=== PATIENT | male | born 1965 | race Two or more races ===

== ENCOUNTER 2021-08-17 19:48 | Inpatient (IN) | payer OTHER ==
[~2021-08-17] VITALS: Ht 172.7 cm; Wt 87.7 kg
[2021-08-17] MEDS ORDERED: IOHEXOL 350 MG/ML 100ML IJ ONE (21:05)
[2021-08-17 21:09] LABS: Urine Bacteria FEW /hpf (None Seen); Urine Blood Negative /uL (Negative); Urine Hyaline Cast FEW /lpf (0 - 2); Urine Mucus FEW (None Seen); Urine Specific Gravity 1.028 (1.001-1.035); Urine WBC 2 /hpf (0 - 3)
[2021-08-17 21:29] LABS: Basophils # (auto) 0.2 10 ^3/uL (0-0.2); Eosinophils # (auto) 0.1 10 ^3/uL (0-0.8); Eosinophils % (auto) 0.9 % (0.0-7.0); Hematocrit 34.7 % (41.0-53.0); Hemoglobin 11.7 g/dL (13.5-17.5); Lymphocytes # (auto) 3.5 10 ^3/uL (0.4-5.4); Lymphocytes % (auto) 21.1 % (10.0-50.0); Mean Corpuscular Hemoglobin 31.1 pg (28.0-32.0); Mean Corpuscular Hgb Conc. 33.5 g/dL (32.0-36.0); Mean Corpuscular Volume 92.7 fL (80.0-100.0); Monocytes # (auto) 0.8 10 ^3/uL (0-1.3); Monocytes % (auto) 4.8 % (0.0-12.0); Neutrophils # (auto) 11.9 10 ^3/uL (1.6-8.6); Neutrophils % (auto) 72.2 % (37.0-80.0); Nucleated Red Blood Cells % 0.1 %; Red Blood Cells 3.75 10^6/uL (4.5-5.90); White Blood Cell 16.4 10^3/uL (4.4-10.8)
[2021-08-17 21:42] LABS: Albumin 3.6 g/dL (3.4-5.0); Calcium 8.8 mg/dL (8.5-10.1); Magnesium 2.2 mg/dL (1.6-2.6); Potassium 3.4 mmol/L (3.5-5.1)
[2021-08-17 21:44] LABS: BUN/Creatinine Ratio 27.1
[2021-08-17 21:47] LABS: Bilirubin, Total 0.3 mg/dL (0.2-1.0); Total Protein 6.8 g/dL (6.4-8.2)
[2021-08-17] MEDS ORDERED: PANTOPRAZOLE 40mg/50ML NS AE 50 ML IV ONE (22:00)
[2021-08-17] MEDS ORDERED: PANTOPRAZOLE 80 MG in SODIUM CHL 0.9% 100 ML IV ONE (22:00)
[2021-08-17] MEDS ORDERED: ONDANSETRON HCL 4 MG/2 ML VIAL IV PRN (22:45)
[2021-08-17] MEDS ORDERED: MORPHINE SULFATE INJ 2 MG/ml SYRG IV PRN (22:45)
[2021-08-17] MEDS ORDERED: NITROGLYCERIN 0.4 MG SL TAB SL PRN (22:45)
[2021-08-17 22:58] LABS: INR 0.97 (0.9-1.15)
[2021-08-18] MEDS: SODIUM CHLORIDE 0.9% 1,000 ML IV SCH ×4 (00:20→13:30)
[2021-08-18] MEDS: PANTOPRAZOLE 40mg/50ML NS AE 50 ML IV SCH ×6 (00:21→23:58)
[2021-08-18] MEDS ORDERED: PANTOPRAZOLE 40 MG/10 ML VIAL INJ IV ONE (01:31)
[2021-08-18 02:58] VITALS: BP 114/69
[2021-08-18 05:00] VITALS: BP 114/69
[2021-08-18 07:16] LABS: Basophils # (auto) 0.1 10 ^3/uL (0-0.2); Basophils % (auto) 0.9 % (0.0-2.0); Eosinophils # (auto) 0.1 10 ^3/uL (0-0.8); Eosinophils % (auto) 0.7 % (0.0-7.0); Hematocrit 28.2 % (41.0-53.0); Hemoglobin 9.7 g/dL (13.5-17.5); Lymphocytes # (auto) 2.4 10 ^3/uL (0.4-5.4); Mean Corpuscular Hemoglobin 31.2 pg (28.0-32.0); Mean Corpuscular Hgb Conc. 34.3 g/dL (32.0-36.0); Mean Corpuscular Volume 91.2 fL (80.0-100.0); Monocytes # (auto) 0.4 10 ^3/uL (0-1.3); Monocytes % (auto) 4.3 % (0.0-12.0); Neutrophils # (auto) 6.6 10 ^3/uL (1.6-8.6); Neutrophils % (auto) 69.1 % (37.0-80.0); Red Blood Cells 3.09 10^6/uL (4.5-5.90); White Blood Cell 9.5 10^3/uL (4.4-10.8)
[2021-08-18 07:31] LABS: Albumin 3.1 g/dL (3.4-5.0); Calcium 8.1 mg/dL (8.5-10.1)
[2021-08-18 07:34] LABS: BUN/Creatinine Ratio 29.1
[2021-08-18 07:37] LABS: Bilirubin, Total 0.3 mg/dL (0.2-1.0); Total Protein 5.5 g/dL (6.4-8.2)
[2021-08-18 09:00] VITALS: BP 101/59
[2021-08-18 13:00] VITALS: BP 98/51
[2021-08-18 17:00] VITALS: BP 94/52
[2021-08-18] MEDS: SUCRALFATE 1 GM TAB PO SCH ×2 (17:51→21:09)
[2021-08-18 22:09] VITALS: BP 98/51
[2021-08-19] MEDS: SODIUM CHLORIDE 0.9% 1,000 ML IV SCH ×2 (04:34→15:21)
[2021-08-19 04:41] VITALS: BP 116/75
[2021-08-19] MEDS: SUCRALFATE 1 GM TAB PO SCH ×4 (06:02→22:40)
[2021-08-19] MEDS: PANTOPRAZOLE 40mg/50ML NS AE 50 ML IV SCH ×3 (06:02→15:23)
[2021-08-19 09:00] VITALS: BP 121/60
[2021-08-19 11:03] LABS: Basophils # (auto) 0.1 10 ^3/uL (0-0.2); Eosinophils # (auto) 0 10 ^3/uL (0-0.8); Eosinophils % (auto) 0.3 % (0.0-7.0); Hematocrit 26.8 % (41.0-53.0); Lymphocytes # (auto) 1.7 10 ^3/uL (0.4-5.4); Lymphocytes % (auto) 20.3 % (10.0-50.0); Mean Corpuscular Hgb Conc. 33.5 g/dL (32.0-36.0); Mean Corpuscular Volume 92.6 fL (80.0-100.0); Monocytes # (auto) 0.4 10 ^3/uL (0-1.3); Monocytes % (auto) 4.5 % (0.0-12.0); Neutrophils # (auto) 6.4 10 ^3/uL (1.6-8.6); Neutrophils % (auto) 73.9 % (37.0-80.0); Red Blood Cells 2.89 10^6/uL (4.5-5.90); Red Cell Distribution Width 13.2 % (11.8-14.3); White Blood Cell 8.6 10^3/uL (4.4-10.8)
[2021-08-19 13:00] VITALS: BP 109/57
[2021-08-19] MEDS ORDERED: LIDOCAINE VISCOUS 2% 15ML UD ONE (13:18)
[2021-08-19] MEDS ORDERED: SODIUM CHLORIDE LOCK 10 ML ONE (13:18)
[2021-08-19] MEDS: fentaNYL CITRATE 100 MCG/2 ML VL ONE ×3 (13:29→13:35)
[2021-08-19] MEDS: MIDAZOLAM HCL 5 MG/ML-1ML VIAL ONE ×2 (13:29→13:32)
[2021-08-19] MEDS: diphenhdrAMINE HCL 50 MG/1 ML VL ONE ×2 (13:30→13:32)
[2021-08-19 17:00] VITALS: BP 94/54
[2021-08-19 23:44] VITALS: BP 119/57
[2021-08-20] MEDS: PANTOPRAZOLE 40mg/50ML NS AE 50 ML IV SCH ×5 (00:45→15:45)
[2021-08-20] MEDS: SODIUM CHLORIDE 0.9% 1,000 ML IV SCH ×3 (00:51→12:30)
[2021-08-20 05:10] VITALS: BP 93/45
[2021-08-20 06:03] LABS: Basophils # (auto) 0.1 10 ^3/uL (0-0.2); Basophils % (auto) 1.2 % (0.0-2.0); Eosinophils # (auto) 0.3 10 ^3/uL (0-0.8); Eosinophils % (auto) 4.3 % (0.0-7.0); Hematocrit 24.6 % (41.0-53.0); Hemoglobin 8.6 g/dL (13.5-17.5); Lymphocytes % (auto) 32.9 % (10.0-50.0); Mean Corpuscular Hemoglobin 31.8 pg (28.0-32.0); Mean Corpuscular Hgb Conc. 34.9 g/dL (32.0-36.0); Mean Corpuscular Volume 91.2 fL (80.0-100.0); Monocytes # (auto) 0.4 10 ^3/uL (0-1.3); Monocytes % (auto) 6.7 % (0.0-12.0); Neutrophils # (auto) 3.3 10 ^3/uL (1.6-8.6); Neutrophils % (auto) 54.9 % (37.0-80.0); Nucleated Red Blood Cells % 0.1 %; Red Cell Distribution Width 13.4 % (11.8-14.3); White Blood Cell 6.1 10^3/uL (4.4-10.8)
[2021-08-20] MEDS: SUCRALFATE 1 GM TAB PO SCH ×2 (06:48→11:30)
[2021-08-20 09:00] VITALS: BP 108/68
[2021-08-20] MEDS ORDERED: SUCR1TAB PO (09:15)
[2021-08-20] MEDS ORDERED: FERR-7 PO (09:15)
[2021-08-20] MEDS ORDERED: PANT40T PO (09:15)
[2021-08-20 13:00] VITALS: BP 110/69
[2021-08-20 14:46] VITALS: BP 110/69
== END 2021-08-20 15:20 | disposition home or self-care (01) | DRG 391 ==
LOC: ER 19:48 → TELE 22:44 → TELE-EAST 08-18 03:53 → EAST 08-19 17:08
PROVIDERS: ADMIT Nurse Practitioner; ATTEND Family Medicine
PROC: 0DB68ZX Excision of Stomach, Via Natural or Artificial Opening Endoscopic, Diagnostic (ICD-10-PCS; 2021-08-19)
PROC: 0DB98ZX Excision of Duodenum, Via Natural or Artificial Opening Endoscopic, Diagnostic (ICD-10-PCS; principal; 2021-08-19 13:24)
DX: K29.70 Gastritis, unspecified, without bleeding (principal); K25.4 Chronic or unspecified gastric ulcer with hemorrhage; D62 Acute posthemorrhagic anemia; E78.00 Pure hypercholesterolemia, unspecified; E86.0 Dehydration; K29.80 Duodenitis without bleeding; Z87.891 Personal history of nicotine dependence; Z87.11 Personal history of peptic ulcer disease; Z20.822 Contact with and (suspected) exposure to COVID-19
CPT/HCPCS: 36415; 71045; 74177; 80053; 81001; 82270; 83036; 83690; 83735; 85025; 85610; 86850; 86900; 86901; 93005; 96365; 99291; C9113; G0378; J2250